=== PATIENT | female | born 1975 | race Caucasian/White ===

== ENCOUNTER 2024-04-26 09:20 | Observation (INO) | payer BC ==
[2024-04-26] MEDS ORDERED: ACETAMINOPHEN INJECTION 100 ML ONE (09:49)
[2024-04-26] MEDS: LACTATED RINGERS SOLUTION 1000 ML INFUS.BAG IV ONE (10:09)
[2024-04-26] MEDS: ACETAMINOPHEN 1000 MG/100 ML BAG IVPB ONE (10:09)
[2024-04-26 10:21] LABS: BASO % 0.5 % (0-2.0); EOS % 2.1 % (0-4.5); HEMATOCRIT 39.2 % (32.4-45.2); HEMOGLOBIN 13.3 GM/dL (10.7-15.3); LYMPH % 8.6 % (8-40); MCH 28.7 pg (25.7-33.7); MCHC 33.9 g/dl (32.0-36.0); MEAN CELL VOLUME 84.7 fl (80-96); MEAN PLT VOLUME 7.5 fl (7.5-11.1); MONO % 7.1 % (3.8-10.2); NEUT % 81.7 % (42.8-82.8); PLATELET COUNT 336 10^3/uL (134-434); RBC 4.62 M/mm3 (3.60-5.2); RDW 13.6 % (11.6-15.6); WHITE BLOOD COUNT 14.8 K/mm3 (4.0-10.0)
[2024-04-26 10:25] LABS: INR 0.99 (0.83-1.09); PROTHROMBIN TIME (PATIENT) 11.4 SEC (9.7-13.0)
[2024-04-26 10:28] LABS: ACTIVATED PTT 31.3 SECONDS (25.2-36.5)
[2024-04-26 10:40] LABS: ALBUMIN 3.9 g/dl (3.4-5.0); BLOOD UREA NITROGEN 11.1 mg/dL (7-18); CALCIUM 9.4 mg/dL (8.5-10.1)
[2024-04-26 10:41] LABS: MAGNESIUM 2.1 mg/dL (1.8-2.4)
[2024-04-26 10:44] LABS: CREATININE 0.7 mg/dL (0.55-1.3)
[2024-04-26 10:45] LABS: BILIRUBIN,TOTAL 0.5 mg/dL (0.2-1); TOT PROT 7.2 g/dl (6.4-8.2)
[2024-04-26] MEDS ORDERED: CEFTRIAXONE 1 GM/50 ML BAG ONE (12:29)
[2024-04-26] MEDS ORDERED: AZITHROMYCIN IVPB 500 MG/250 ML BAG IVPB ONE (12:48)
[2024-04-26] MEDS: AZITHROMYCIN IVPB 500 MG in DEXTROSE 5%-WATER - 250 ML IVPB ONE (12:56)
[2024-04-26 14:05] VITALS: RESP 18
[2024-04-26] MEDS: ACETAMINOPHEN 500 MG TABLET (FP) PO PRN (16:16)
[2024-04-26 17:32] VITALS: BMI 27.1
[2024-04-26] MEDS: HEPARIN NA (PORCINE) 5,000 UNITS/ML 1ML VIAL SQ SCH (21:04)
[2024-04-27] MEDS: CEFTRIAXONE 1 GM in DEXTROSE 5%-WATER - 50 ML IVPB SCH (10:38)
[2024-04-27] MEDS: AZITHROMYCIN 250 MG TABLET PO SCH (10:38)
[2024-04-27 11:08] LABS: BASO % 0.7 % (0-2.0); EOS % 2.1 % (0-4.5); HEMATOCRIT 39.6 % (32.4-45.2); HEMOGLOBIN 13.7 GM/dL (10.7-15.3); LYMPH % 19.8 % (8-40); MCH 29.5 pg (25.7-33.7); MCHC 34.7 g/dl (32.0-36.0); MEAN PLT VOLUME 7.8 fl (7.5-11.1); MONO % 6.9 % (3.8-10.2); NEUT % 70.5 % (42.8-82.8); PLATELET COUNT 376 10^3/uL (134-434); RBC 4.66 M/mm3 (3.60-5.2); RDW 13.6 % (11.6-15.6); WHITE BLOOD COUNT 9.3 K/mm3 (4.0-10.0)
[2024-04-27 11:32] LABS: POTASSIUM 3.9 mmol/L (3.5-5.1)
[2024-04-27 11:34] LABS: BLOOD UREA NITROGEN 10.5 mg/dL (7-18); CALCIUM 9.7 mg/dL (8.5-10.1)
[2024-04-27 11:38] LABS: CREATININE 0.7 mg/dL (0.55-1.3)
[2024-04-27 14:54] VITALS: BP 119/88; PULSE 99; TEMP 99.3
== END 2024-04-27 17:46 | disposition home or self-care (01) ==
LOC: JER 09:20 → JERBED 12:42 → J5S 14:41
PROVIDERS: ADMIT Internal Medicine
PROC: 3E03329 Introduction of Other Anti-infective into Peripheral Vein, Percutaneous Approach (ICD-10-PCS; principal; 2024-04-26)
PROC: 3E033NZ Introduction of Analgesics, Hypnotics, Sedatives into Peripheral Vein, Percutaneous Approach (ICD-10-PCS; 2024-04-26)
PROC: 3E0337Z Introduction of Electrolytic and Water Balance Substance into Peripheral Vein, Percutaneous Approach (ICD-10-PCS; 2024-04-26)
DX: J18.9 Pneumonia, unspecified organism (principal); J98.11 Atelectasis; E78.5 Hyperlipidemia, unspecified; K21.9 Gastro-esophageal reflux disease without esophagitis; Z87.891 Personal history of nicotine dependence; R93.5 Abnormal findings on diagnostic imaging of other abdominal regions, including retroperitoneum; J90 Pleural effusion, not elsewhere classified; R00.0 Tachycardia, unspecified; K86.9 Disease of pancreas, unspecified
CPT/HCPCS: 0241U-QW; 36415; 71045-TC-FY; 71275-TC; 80048; 80053; 83735; 84443; 84484; 84703; 85025; 85610; 85730; 93005; 93010; 93306-TC; 93971-TC; 94010; 99285-25; G0378; J0131; J1644; Q9967